=== PATIENT | female | born 1985 | race African-American/Black ===

== ENCOUNTER 2019-03-30 13:32 | Emergency (ER) | payer SELFPAY ==
[~2019-03-30] VITALS: Ht 165.1 cm; Wt 78.0 kg
[2019-03-30 13:39] VITALS: BP 123/69
[2019-03-30] MEDS ORDERED: KETOROLAC 60MG/2ML VIAL IM STA (15:28)
[2019-03-30] MEDS ORDERED: HYDROCODONE/ACETAMINOPHEN 5/325MG TABLET PO STA (15:28)
[2019-03-30] MEDS ORDERED: BACITRACIN ZINC OINT UDPKT TOP ONE (17:15)
== END 2019-03-30 17:23 | disposition home or self-care (01) ==
LOC: ER 13:32
DX: S80.01XA Contusion of right knee, initial encounter (principal); S39.012A Strain of muscle, fascia and tendon of lower back, initial encounter; V49.49XA Driver injured in collision with other motor vehicles in traffic accident, initial encounter; Y93.89 Activity, other specified; Y92.89 Other specified places as the place of occurrence of the external cause; Y99.8 Other external cause status; R07.89 Other chest pain; F17.290 Nicotine dependence, other tobacco product, uncomplicated; F12.10 Cannabis abuse, uncomplicated; Z98.890 Other specified postprocedural states
CPT/HCPCS: 71045; 72100; 73560; 73590; 81025; 96372; 99283; J1885